=== PATIENT | female | born 1960 | race Caucasian/White ===

== ENCOUNTER 2016-11-20 00:36 | Emergency (ER) | payer BC ==
[2016-11-20] MEDS ORDERED: Ondansetron 4 MG/2 ML SDV IVPUSH ONE (00:41)
[2016-11-20] MEDS ORDERED: HYDROmorphone 1 MG/ML Syringe IVPUSH ONE ×3 (00:41→01:06)
[2016-11-20] MEDS ORDERED: HYDROmorphone 1 MG/ML Syringe ONE (01:04)
--- NOTE | 2016-11-20 01:35 | EDM.PDOC ---
ED HPI GENERAL MEDICAL PROBLEM - General Chief Complaint: Lower Extremity Injury/Pain Stated Complaint: RIGHT ANKLE PAIN Time Seen by Provider: 11/20/16 01:36 - History of Present Illness INITIAL COMMENTS - FREE TEXT/NARRATIVE: HISTORY AND PHYSICAL: History of present illness: Patient's a 56-year-old white female presents status post fall with an obvious fracture dislocation of her right ankle she also injured her left foot she denies any head or neck pain or trauma she states was strictly mechanical fall Review of systems: As per history of present illness and below otherwise all systems reviewed and negative. Past medical history: As per history of present illness and as reviewed below otherwise noncontributory. Surgical history: As per history of present illness and as reviewed below otherwise noncontributory. Social history: No reported history of drug or alcohol abuse. Family history: As per history of present illness and as reviewed below otherwise noncontributory. Physical exam: HEENT: Atraumatic, normocephalic, pupils reactive, negative for conjunctival pallor or scleral icterus, mucous membranes moist, throat clear, neck supple, nontender, trachea midline. Lungs: Clear to auscultation, breath sounds equal bilaterally, chest nontender. Heart: S1S2, regular, negative for clicks, rubs, or JVD. Abdomen: Soft, nondistended, nontender. Negative for masses or hepatosplenomegaly. Negative for costovertebral tenderness. Pelvis: Stable nontender. Genitourinary: Deferred. Rectal: Deferred. Extremities: Right ankle has an obvious subluxation with a faint dorsal pedis pulse on initial evaluation a stat x-ray demonstrates a tibiotalar dislocation with at least a bimalleolar fracture. Left foot has some mild tenderness over the dorsal lateral aspect Neuro: Awake, alert, oriented. Cranial nerves II through XII unremarkable. Cerebellum unremarkable. Motor and sensory unremarkable throughout. Exam nonfocal. Diagnostics: X-ray right ankle x-ray left foot Therapeutics: Patient had a emergent reduction that was successful clinically with return of a strong dorsal pedal pulse she also has a posterior tibial pulse neurovascular exam status post reductions unremarkable and post reduction x-ray demonstrates relatively good alignment of the ankle mortise and what appears to be a bimalleolar fracture patient had a posterior mold placed tolerated procedure well Patient was given Dilaudid 1 mg IV and subsequently 2 more milligrams IV with good analgesia and normal hemodynamics and no respiratory or neurological depression Impression: #1 observation status post fall #2 bimalleolar fracture right ankle with dislocation status post reduction #3 left foot injury Definitive disposition and diagnosis as appropriate pending reevaluation and review of above. Right Ankle Pain Score (Numeric/FACES): 10 - Related Data Allergies Allergy/AdvReac Type Severity Reaction Status Date / Time Penicillins Allergy Other Verified 11/20/16 00:45 Past Medical History - Past Health History Medical/Surgical History: Denies Medical/Surgical History HEENT History: Reports: None Cardiovascular History: Reports: None Respiratory History: Reports: None Gastrointestinal History: Reports: None Genitourinary History: Reports: None [employer] History: Reports: None Musculoskeletal History: Reports: Arthritis Neurological History: Reports: None Psychiatric History: Reports: None Endocrine/Metabolic History: Reports: None Hematologic History: Reports: None Dermatologic History: Reports: None - Infectious Disease History Infectious Disease History: Reports: None - Past Surgical History HEENT Surgical History: Reports: None Female Surgical History: Reports: None Social & Family History - Family History Family Medical History: Noncontributory - Tobacco Use Smoking Status *Q: Never Smoker - Recreational Drug Use Recreational Drug Use: No Review of Systems - Review of Systems Review Of Systems: ROS reveals no pertinent complaints other than HPI. ED EXAM, GENERAL - Physical Exam Exam: See Below (See dictation) Course - Vital Signs Text/Narrative:: Case was discussed with orthopedic surgery at [place] who graciously accepted referral of the patient and request to see the patient tomorrow at 10 AM in the office this was also discussed with patient and who are in agreement she will be discharged with posterior mold crutches hydrocodone be taken as prescribed and keep appointment as scheduled she is to monitor her neurovascular status is discussed with capillary refill and motor and sensory evaluation and return for any changes as discussed Last Recorded V/S: Last Vital Signs Temp 36.6 C 11/20/16 00:45 Pulse 93 11/20/16 01:07 Resp 20 11/20/16 01:07 BP 153/89 H 11/20/16 01:07 Pulse Ox 98 11/20/16 01:07 - Orders/Labs/Meds Orders: Active Orders 24 hr Category Date Time Status Ankle 2V Rt [CR] Stat Exams 11/20/16 00:56 Taken Ankle 2V Rt [CR] Stat Exams 11/20/16 01:06 Taken Foot 2V Lt [CR] Stat Exams 11/20/16 01:29 Ordered Meds: Medications Discontinued Medications Generic Name Dose Route Start Last Admin Trade Name Antonietta PRN Reason Stop Dose Admin Hydromorphone HCl 1 mg 11/20/16 00:41 11/20/16 00:43 Dilaudid IVPUSH 11/20/16 00:42 1 mg ONETIME ONE Administration Hydromorphone HCl 1 mg 11/20/16 00:53 11/20/16 00:54 Dilaudid IVPUSH 11/20/16 00:54 1 mg ONETIME ONE Administration Hydromorphone HCl 1 mg 11/20/16 01:06 11/20/16 01:10 Dilaudid IVPUSH 11/20/16 01:07 1 mg ONETIME ONE Administration Hydromorphone HCl Confirm 11/20/16 01:04 11/20/16 01:24 Dilaudid Administered 11/20/16 01:05 Not Given Dose 1 mg .ROUTE .STK-MED ONE Ondansetron HCl 4 mg 11/20/16 00:41 11/20/16 00:43 Zofran IVPUSH 11/20/16 00:42 4 mg ONETIME ONE Administration Departure - Departure Time of Disposition: 01:35 Disposition: Home, Self-Care 01 Condition: Good Clinical Impression: Ankle fracture, bimalleolar, closed, Ankle dislocation - Discharge Information Forms: ED Department Discharge Additional Instructions: The following information is given to patients seen in the emergency department who are being discharged to home. This information is to outline your options for follow-up care. We provide all patients seen in our emergency department with a follow-up referral. The need for follow-up, as well as the timing and circumstances, are variable depending upon the specifics of your emergency department visit. If you don't have a primary care physician on staff, we will provide you with a referral. We always advise you to contact your personal physician following an emergency department visit to inform them of the circumstance of the visit and for follow-up with them and/or the need for any referrals to a consulting specialist. The emergency department will also refer you to a specialist when appropriate. This referral assures that you have the opportunity for followup care with a specialist. All of these measure are taken in an effort to provide you with optimal care, which includes your followup. Under all circumstances we always encourage you to contact your private physician who remains a resource for coordinating your care. When calling for followup care, please make the office aware that this follow-up is from your recent emergency room visit. If for any reason you are refused follow-up, please contact the [facility] emergency department at and asked to speak to the emergency department charge nurse. Hydrocodone as prescribed keep scheduled appointment with orthopedic surgery in [place] at 10 AM tomorrow as referred with return as needed as discussed - My Orders Last 24 Hours: My Active Orders 11/20/16 00:56 Ankle 2V Rt [CR] Stat 11/20/16 01:06 Ankle 2V Rt [CR] Stat 11/20/16 01:29 Foot 2V Lt [CR] Stat - Assessment/Plan Last 24 Hours: My Active Orders 11/20/16 00:56 Ankle 2V Rt [CR] Stat 11/20/16 01:06 Ankle 2V Rt [CR] Stat 11/20/16 01:29 Foot 2V Lt [CR] Stat
[2016-11-20] MEDS ORDERED: Morphine 2 MG/ML Syringe IVPUSH ONE (04:12)
[2016-11-20 06:25] VITALS: BP 159/94
[2016-11-20] MEDS ORDERED: Ondansetron 4 MG Tab.DIS PO ONE (06:49)
--- NOTE | 2016-11-20 10:01 | CR ---
EXAM DATE: 11/20/16 PATIENT'S AGE: 56 Patient: SPENCER GONZALEZ Facility: [place], [place] Site . Site : 1960 Study: XRay Extremity Right ANKLE [id number]/23/2017 12:59:35 AM Ordering Physician: Doctor Mitchell Final Report: Indication: Right ankle injury. Technique: Right ankle two views. Comparison: None. Findings: There is a comminuted, impacted and obliquely oriented fracture of the distal fibula extending to the tibial fibular syndesmosis. There is also a comminuted displaced fracture of the medial malleolus. Probable impaction type fracture of the posterior malleolus is not well defined. Disruption of the ankle mortise with lateral and posterior displacement of the talus relative to the tibia and fibula. No additional acute osseous abnormality evident. Associated soft tissue swelling. Impression: Comminuted displaced fractures of the distal fibula and medial malleolus with disruption of the ankle mortise. Suspected fracture of the posterior malleolus is not well aligned. Dictated by Waldemar Ware MD @ 11/20/2016 1:10:10 AM Dictated by: Waldemar Ware MD @ 11/20/2016 01:10:37 (Electronic Signature) Report Signed by Proxy. [facility]
--- NOTE | 2016-11-20 10:02 | CR ---
EXAM DATE: 11/20/16 PATIENT'S AGE: 56 Patient: SPENCER GONZALEZ Facility: [place], [place] Site . Site : 1960 Study: XRay Extremity Right ANKLE [id number]/23/2017 1:13:51 AM Ordering Physician: Doctor Mitchell Final Report: Indication: Postreduction right ankle. Injury. Technique: Right ankle two views. Comparison: Right ankle 11/20/2016 at 12:48 a.m.. Findings: Overlying casting material. Interval reduction of fractures involving the distal fibula and medial malleolus. Markedly improved/near anatomic alignment of fracture. Mild lateral displacement of fracture fragments in the talus persist. No definite fracture of the posterior malleolus. No additional osseous abnormality. Soft tissue swelling. Impression: Markedly improved alignment status post reduction. Mild lateral displacement of fracture fragments and the talus persist. No definite fracture of the posterior malleolus. Dictated by Waldemar Ware MD @ 11/20/2016 1:17:10 AM Dictated by: Waldemar Ware MD @ 11/20/2016 01:17:21 (Electronic Signature) Report Signed by Proxy. IZZY
--- NOTE | 2016-11-20 10:03 | CR ---
EXAM DATE: 11/20/16 PATIENT'S AGE: 56 Patient: SPENCER GONZALEZ Facility: [place], [place] Site . Site : 1960 Study: XRay Extremity Left FOOT [id number]/23/2017 1:48:49 AM Ordering Physician: Doctor Mitchell Final Report: Indication: Injury. Pain. Technique: Left foot two views. Comparison: None. Findings: No evidence of acute fracture or dislocation. No additional osseous abnormality. Soft tissues as imaged are unremarkable. Impression: No acute osseous abnormality. Dictated by Waldemar Ware MD @ 11/20/2016 1:52:43 AM Dictated by: Waldemar Ware MD @ 11/20/2016 01:53:00 (Electronic Signature) Report Signed by Proxy. [facility]
== END 2016-11-20 06:58 | disposition home or self-care (01) ==
LOC: MW.ED 00:36
DX: S99.922A Unspecified injury of left foot, initial encounter (principal); S82.61XA Displaced fracture of lateral malleolus of right fibula, initial encounter for closed fracture; M19.90 Unspecified osteoarthritis, unspecified site; Z88.0 Allergy status to penicillin; W19.XXXA Unspecified fall, initial encounter
CPT/HCPCS: 27788; 73600; 73620; 96374; 96375; 99283; A9270; J1170; J2270; J2405; 27810; 99284